=== PATIENT | male | born 2000 | race American Indian/Alaskan Native ===

== ENCOUNTER → 2021-10-24 | Emergency (ER) | payer SELFPAY ==
[~2021-10-24] MED LIST: IBUPROFEN 800 MG TAB PO STA; dexAMETHasone 4 MG/ML VIAL IM STA
[2021-10-24 07:40] VITALS: BP 153/92
--- NOTE | 2021-10-24 08:22 | Emergency Department Report ---
ED General Adult HPI - General Chief complaint: Sore Throat Stated complaint: SOB Time Seen by Provider: 10/24/21 07:43 Source: patient Mode of arrival: Ambulatory Limitations: No Limitations - History of Present Illness Initial comments: 26-year-old -[place] male patient presents with complaints of sore throat starting yesterday. He states upon waking this morning he now has difficulty swallowing. He denies any cough, fever/chills/sweats, chest pain, or rashes. No prior medical history per patient. He rates his current pain as a 9/10 in severity. -: Sudden - Related Data Previous Rx's Medication Instructions Recorded Last Taken Type Amoxicillin [Trimox CAP] 500 mg PO BID 10 Days #20 capsule 10/24/21 Unknown Rx Ibuprofen [Motrin 800 MG tab] 800 mg PO Q8HR PRN #15 tablet 10/24/21 Unknown Rx Allergies Allergy/AdvReac Type Severity Reaction Status Date / Time No Known Allergies Allergy Verified 10/24/21 07:27 ED Review of Systems ROS: Stated complaint: SOB Other details as noted in HPI Constitutional: denies: chills, diaphoresis, fever, malaise, weakness ENT: throat pain Respiratory: denies: cough Cardiovascular: denies: chest pain Gastrointestinal: denies: nausea, vomiting, diarrhea Skin: denies: rash ED Past Medical Hx - Medications Home Medications: Home Medications Medication Instructions Recorded Confirmed Last Taken Type Amoxicillin [Trimox CAP] 500 mg PO BID 10 Days #20 capsule 10/24/21 Unknown Rx Ibuprofen [Motrin 800 MG tab] 800 mg PO Q8HR PRN #15 tablet 10/24/21 Unknown Rx ED Physical Exam - General Limitations: No Limitations General appearance: alert, in no apparent distress - Head Head exam: Present: atraumatic, normocephalic - Eye Eye exam: Present: normal appearance - Expanded ENT Exam Expanded Mouth exam: Absent: drooling, trismus Throat exam: Positive: tonsillar erythema (Bilateral), tonsillomegaly (Bilateral), other (Uvula is erythemic and mildly swollen, uvula is midline). Negative: tonsillar exudate, R peritonsillar mass, L peritonsillar mass - Neck Neck exam: Present: full ROM, lymphadenopathy (Mild anterior tender). Absent: meningismus - Respiratory Respiratory exam: Absent: respiratory distress - Cardiovascular Cardiovascular Exam: Present: regular rate, normal rhythm, normal heart sounds - Neurological Exam Neurological exam: Present: alert, oriented X3 - Psychiatric Psychiatric exam: Present: normal affect, normal mood - Skin Skin exam: Present: warm, dry, intact, normal color. Absent: rash ED Course Vital Signs 10/24/21 07:25 Temperature 99.4 F Pulse Rate 92 H Respiratory 20 Rate Blood Pressure 153/92 O2 Sat by Pulse 98 Oximetry ED Medical Decision Making - Lab Data Lab Results 10/24/21 Range/Units Unknown Group A Strep Rapid Positive A (Negative) - Medical Decision Making 26-year-old -[place] male patient presents with complaints of sore throat starting yesterday. He states upon waking this morning he now has difficulty swallowing. He denies any cough, fever/chills/sweats, chest pain, or rashes. No prior medical history per patient. He rates his current pain as a 9/10 in severity. No trismus or peritonsillar abscess noted on exam. Strep test is positive. Prescription for Amoxil given. Swelling improved post Decadron here in ED. Patient is able to swallow. He is well-appearing and stable for discharge home. He is to follow-up with his primary care doctor within 3 to 5 days and also have his blood pressure rechecked with his primary care provider. Discussed signs and symptoms that should prompt immediate return to the ED with patient who verbalizes understanding. Critical care attestation.: If time is entered above; I have spent that time in minutes in the direct care of this critically ill patient, excluding procedure time. ED Disposition Clinical Impression: Strep pharyngitis Disposition: HOME / SELF CARE / HOMELESS Is pt being admited?: No Condition: Stable Instructions: Strep Throat, Adult Prescriptions: Ibuprofen [Motrin 800 MG tab] 800 mg PO Q8HR PRN #15 tablet PRN Reason: pain Amoxicillin [Trimox CAP] 500 mg PO BID 10 Days #20 capsule Referrals: PRIMARY CARE [Primary Care Provider] - 3-5 Days [facility] [Provider Group] - 3-5 Days Forms: Work/School Release Form(ED)
== END | disposition home or self-care (01) ==
LOC: ED 07:22
DX: J02.0 Streptococcal pharyngitis (principal); B95.0 Streptococcus, group A, as the cause of diseases classified elsewhere; Z79.899 Other long term (current) drug therapy
CPT/HCPCS: 87430; 96372; 99283; J1100